=== PATIENT | female | born 1935 | race Two or more races ===

== ENCOUNTER 2019-02-17 23:37 | Inpatient (IN) | payer MEDICARE, MEDICAID ==
[~2019-02-17] VITALS: Ht 162.6 cm; Wt 78.4 kg
[2019-02-18] VITALS (7 sets, daily range): BP systolic 114–164; BP diastolic 58–76
--- NOTE | 2019-02-18 | NUR ---
Direct Admit Note JANETTE CHILDERS admitted to Telemetry/MS unit as a direct admit per MD order. Patient was brought up via wheelchair accompanied by this RN and family member. Patient transferred from wheelchair to bed with minimal assistance. Patient is alert and oriented x4. No S/S of distress/SOB noted. Patient oriented to CLAYTON GRUBBS, primary RN, unit, room, bed, and unit policies regarding patient care and visiting hours. Patient now on continuous telemetry monitoring, tele box #15 and telemetry reading on arrival to unit is sinus rhythm. Patient weighed by bedscale and encouraged to call as needed. All questions and concerns addressed, patient verbalized understanding. MD notified of patients arrival and admit orders received. Bed is locked in lowest position, side rails x 2 are up, call light is within reach, and bed alarm is on.
[2019-02-18] MEDS ORDERED: ONDANSETRON HCL 4 MG/2 ML VIAL IV PRN (00:15)
[2019-02-18] MEDS ORDERED: NITROGLYCERIN 0.4 MG SL TAB SL PRN ×2 (00:15)
[2019-02-18] MEDS ORDERED: TEMAZEPAM 15 MG CAP PO PRN (00:15)
[2019-02-18] MEDS ORDERED: DOCUSATE SOD 100 MG CAP PO PRN (00:15)
[2019-02-18] MEDS ORDERED: LORazepam 0.5 MG TAB PO PRN (00:15)
[2019-02-18] MEDS ORDERED: MORPHINE SULF INJ 2 MG/ML SYRINGE 1ML IV PRN ×2 (00:15)
--- NOTE | 2019-02-18 00:30 | NUR ---
IV insertion IV access obtained, via clean sterile technique by inserting 22 gauge catheter at right forearm after 1 attempt. IV secured properly. IV flushing well, with no resistance. Patient denies burning or painful sensation at site. Educated patient to call this RN if IV site begins to burn or becomes painful, patient verbalized understanding.
[2019-02-18] MEDS ORDERED: LEVOFLOXACIN 500MG 100 ML IV ONE (02:00)
[2019-02-18] MEDS ORDERED: cloNIDine 0.2 mg/24hr 7DAY PATCH TD SCH (02:00)
[2019-02-18] MEDS: HYDROcodone-ACET 5/325MG TAB PO PRN ×3 (02:11→21:57)
[2019-02-18] MEDS: SOD CHL 0.45% 1,000 ML IV SCH ×3 (02:23→19:13)
[2019-02-18] MEDS ORDERED: HYDR-4833 PO (02:38)
[2019-02-18] MEDS ORDERED: RIVA10TA PO (02:38)
[2019-02-18] MEDS ORDERED: FURO20TA3 PO (02:38)
[2019-02-18] MEDS ORDERED: PAR20T PO (02:38)
[2019-02-18] MEDS ORDERED: LORA0.5T12 PO (02:38)
[2019-02-18] MEDS ORDERED: MET50T PO (02:38)
[2019-02-18] MEDS ORDERED: FENO1TAB42 PO ×2 (02:38→02:39)
[2019-02-18] MEDS ORDERED: LATA0.0015 EACHEYE (02:38)
[2019-02-18] MEDS ORDERED: SIMV-8 PO (02:38)
[2019-02-18] MEDS ORDERED: VALS40TA2 PO (02:38)
[2019-02-18] MEDS ORDERED: DILT30TA24 PO (02:38)
[2019-02-18] MEDS ORDERED: ANAS1TAB7 PO (02:38)
[2019-02-18] MEDS ORDERED: CLOP75TA28 PO (02:38)
[2019-02-18] MEDS ORDERED: CLON0.1T PO (02:38)
[2019-02-18] MEDS ORDERED: DOCU100T15 PO (02:38)
[2019-02-18 03:50] LABS: BUN/Creatinine Ratio 19.8; Calcium 8.1 mg/dL (8.5-10.1); Potassium 5.1 mmol/L (3.5-5.1)
[2019-02-18 03:53] LABS: Hematocrit 28.1 % (36.0-46.0); Hemoglobin 9.7 g/dL (12.2-16.2); Mean Corpuscular Hemoglobin 38.5 pg (28.0-32.0); Mean Corpuscular Hgb Conc. 34.5 g/dL (32.0-36.0); Mean Corpuscular Volume 111.7 fL (80.0-100.0); Platelet Count (auto) 258 10^3/uL (140-450); Red Blood Cells 2.52 10^6/uL (4.0-5.20); Red Cell Distribution Width 15.3 % (11.8-14.3); White Blood Cell 6.2 10^3/uL (4.4-10.8)
[2019-02-18 03:55] LABS: Basophils % (manual) 0 (0.0-2.0); Blast Cells 0; Myelocytes % 0; Promyelocytes % 0; Reactive Lymphocytes 0
[2019-02-18 04:18] LABS: Urine Bacteria FEW /hpf (None Seen); Urine Blood TRACE /uL (Negative); Urine Specific Gravity 1.016 (1.001-1.035); Urine WBC 349 /hpf (0 - 5); Urine WBC Clumps PRESENT /hpf (None Seen)
[2019-02-18 05:06] LABS: Band Neutrophils % (manual) 5; Eosinophils % (manual) 3 (0-7); Lymphocytes % (manual) 34 (10.0-50.0); Metamyelocytes % 1; Monocytes % (manual) 6 (0-12)
[2019-02-18] MEDS: SODIUM CHLOR 0.9% PF (SALINE LOCK) 10ML VIAL/SYR IV SCH ×3 (05:52→21:51)
[2019-02-18] MEDS: ACETAMINOPHEN 325 MG TAB PO PRN (06:33)
[2019-02-18] MEDS: VALSARTAN 80 MG TAB PO SCH ×2 (09:56→21:51)
[2019-02-18] MEDS: METOPROLOL SUCCINATE XL 50 MG TAB PO SCH (09:57)
[2019-02-18] MEDS ORDERED: LEVOFLOXACIN 500MG 100 ML IV SCH (10:00)
--- NOTE | 2019-02-18 20:48 | NUR ---
RECEIVED PATIENT FROM DAY SHIFT RN. PATIENT RESTING IN BED. NO S/S OF DISTRESS NOTED. DENIED PAIN FOR NOW, BUT LITTER TENDER WHEN ASSESSING ABDOMEN. POC INSTRUCTED AND ENCOURAGED PATIENT TO CALL FOR ORGANIZATIONAL DEVELOPMENT MANAGER IF NEEDED. BED IN LOWEST POSITION WITH SIDE RAILS UP X 2. CALL SARGENT WITHIN REACH. ALARM ON. CONTINUE TO MONITOR FOR CHANGES Q1H AND PRN.
[2019-02-18] MEDS: HUMALOG INSULIN SC SCH (21:56)
[2019-02-18] MEDS: ACCU-CHEK COMFORT CURVE STRIP VI SCH (21:57)
--- NOTE | 2019-02-18 21:57 | NUR ---
ACCU-CHECK, BS 142. NO COVERAGE PER SLIDING SCALE. CONTINUE TO MONITOR.
--- NOTE | 2019-02-19 00:51 | NUR ---
PATIENT SLEEPING. NO S/S OF DISTRESS NOTED. BREATHING EVEN AND UNLABORED. CONTINUE TO MONITOR.
[2019-02-19] MEDS: LEVOFLOXACIN 250MG 50 ML IV SCH (01:42)
[2019-02-19] MEDS: HYDROcodone-ACET 5/325MG TAB PO PRN ×3 (02:28→21:51)
--- NOTE | 2019-02-19 02:28 | NUR ---
PATIENT C/O HEADACHE @ 01/06. MEDICATED PATIENT ORDERED. CONTINUE TO MONITOR.
[2019-02-19 05:00] VITALS: BP 157/75
[2019-02-19] MEDS: SODIUM CHLOR 0.9% PF (SALINE LOCK) 10ML VIAL/SYR IV SCH ×3 (05:52→21:50)
[2019-02-19] MEDS: ACCU-CHEK COMFORT CURVE STRIP VI SCH ×4 (06:32→21:51)
[2019-02-19 06:33] LABS: Potassium 4.5 mmol/L (3.5-5.1)
--- NOTE | 2019-02-19 06:33 | NUR ---
ACCU-CHECK, BS 87. CONTINUE TO MONITOR.
[2019-02-19] MEDS: ACETAMINOPHEN 325 MG TAB PO PRN ×2 (06:34→18:18)
--- NOTE | 2019-02-19 06:34 | NUR ---
PATIENT C/O HEADACHE 12/06, MEDICATED PATIENT ORDERED. CONTINUE TO MONITOR.
[2019-02-19 06:42] LABS: BUN/Creatinine Ratio 20.7; Calcium 8.1 mg/dL (8.5-10.1)
--- NOTE | 2019-02-19 06:54 | NUR ---
[facility] CALLED THAT PATIENT HAD A RUN OF VT. CHECKED PATIENT, PATIENT STATED SHE IS OKAY, DENIED ANY PAIN AND CHEST DISCOMFORT. NO S/S OF DISTRESS NOTED. VITALS STABLE, BP 152/70, HR 63, RR 18, O2 SAT 94% ON RA. WILL PASS IT TO DAY SHIFT RN. CONTINUE TO MONITOR.
--- NOTE | 2019-02-19 07:39 | NUR ---
Opening Shift Note Assumed care of patient, awake, alert and oriented X4 . On room air, breath sounds even and unlabored. No S/S of distress/SOB . Patient c/o a headache 10/06. Will medicate as prescribed by MD. Instructed on POC and to call for assist PRN. Bed at lowest locked position, bed rails up x2 and call light within reach. Will continue to monitor for changes Q1hr and PRN.
[2019-02-19 08:00] VITALS: BP 119/62
[2019-02-19 09:00] VITALS: BP 119/62
[2019-02-19] MEDS: SOD CHL 0.45% 1,000 ML IV SCH (09:23)
[2019-02-19] MEDS: VALSARTAN 80 MG TAB PO SCH ×2 (09:57→21:50)
[2019-02-19] MEDS: METOPROLOL SUCCINATE XL 50 MG TAB PO SCH (09:58)
[2019-02-19 13:00] VITALS: BP 163/71
--- NOTE | 2019-02-19 16:50 | NUR ---
UPDATED PATIENT AND FAMILY ON PLAN OF CARE
--- NOTE | 2019-02-19 19:50 | NUR ---
RECEIVED PATIENT FROM DAY SHIFT RN. PATIENT RESTING IN BED. FAMILY AT BEDSIDE. NO S/S OF DISTRESS NOTED. DENIED PAIN FOR NOW. INSTRUCTED PATIENT ABOUT STRAIGHT CATH, PATIENT VERBALIZED UNDERSTANDING. WILL DO IT LATER. POC INSTRUCTED AND ENCOURAGED PATIENT TO CALL FOR CONFIDENTIAL SECRETARY IF NEEDED. BED IN LOWEST POSITION WITH SIDE RAILS UP X 2. CALL SARGENT WITHIN REACH. ALARM ON. CONTINUE TO MONITOR FOR CHANGES Q1H AND PRN.
--- NOTE | 2019-02-19 20:44 | NUR ---
URINE SAMPLE COLLECTED THROUGH STRAIGHT CATH. PATIENT TOLERATED WELL. URINE SAMPLE SENT TO LAB. CONTINUE TO MONITOR.
[2019-02-19 21:18] LABS: Urine Bacteria NONE SEEN /hpf (None Seen); Urine Blood TRACE /uL (Negative); Urine Mucus FEW (None Seen); Urine Specific Gravity 1.019 (1.001-1.035); Urine WBC 91 /hpf (0 - 5)
[2019-02-19] MEDS: HUMALOG INSULIN SC SCH (21:51)
--- NOTE | 2019-02-19 21:55 | NUR ---
ACCU-CHECK, BS 104. NO COVERAGE PER SLIDING SCALE. PATIENT C/O HEADACHE @ 01/06. MEDICATED PATIENT ORDERED. CONTINUE TO MONITOR.
[2019-02-19 22:00] VITALS: BP 153/68
--- NOTE | 2019-02-20 00:44 | NUR ---
REPORT GIVEN TO COLETTE FRANKLIN.
[2019-02-20] MEDS: SOD CHL 0.45% 1,000 ML IV SCH ×2 (01:09→17:57)
[2019-02-20] MEDS: LEVOFLOXACIN 250MG 50 ML IV SCH (01:09)
[2019-02-20 04:58] VITALS: BP 148/70
[2019-02-20] MEDS: ACCU-CHEK COMFORT CURVE STRIP VI SCH ×4 (05:59→21:47)
[2019-02-20] MEDS: SODIUM CHLOR 0.9% PF (SALINE LOCK) 10ML VIAL/SYR IV SCH ×3 (05:59→21:45)
--- NOTE | 2019-02-20 07:15 | NUR ---
Opening Note Received report from night stocker RN. Patient is resting in bed, easy to wake by calling name. Patient is on room air, respirations even and unlabored. Patient states abdominal and flank pain 6/10. Will medicate per orders. Reviewed plan of care with patient, patient verbalized understanding. Bed in low and locked position, call light within reach. Will continue to monitor Q1 hour and PRN.
[2019-02-20] MEDS: HYDROcodone-ACET 5/325MG TAB PO PRN (08:36)
[2019-02-20 08:50] VITALS: BP 150/84
--- NOTE | 2019-02-20 09:15 | NUR ---
Family at bedside
[2019-02-20] MEDS: VALSARTAN 80 MG TAB PO SCH ×2 (09:30→21:46)
[2019-02-20] MEDS: METOPROLOL SUCCINATE XL 50 MG TAB PO SCH (09:31)
[2019-02-20 13:00] VITALS: BP 125/57
--- NOTE | 2019-02-20 15:41 | NUR ---
assessment Patient will need a resumption order for [facility] on discharge. Addendum: 02/20/19 at 1542 by Regina PINEDA Amended: Links added.
[2019-02-20 16:57] VITALS: BP 158/68
[2019-02-20] MEDS: ACETAMINOPHEN 325 MG TAB PO PRN (18:16)
--- NOTE | 2019-02-20 19:10 | NUR ---
Closing Note Report given to mill manager RN. Family at bedside. No signs or symptoms of distress noted at this time.
--- NOTE | 2019-02-20 19:22 | NUR ---
RECEIVED PATIENT FROM DAY SHIFT RN. PATIENT RESTING IN BED. FAMILY AT BEDSIDE. NO S/S OF DISTRESS NOTED. DENIED PAIN FOR NOW. POC INSTRUCTED AND ENCOURAGED PATIENT TO CALL FOR HAND COLLATOR IF NEEDED. BED IN LOWEST POSITION WITH SIDE RAILS UP X 2. CALL SARGENT WITHIN REACH. ALARM ON. CONTINUE TO MONITOR FOR CHANGES Q1H AND PRN.
--- NOTE | 2019-02-20 19:53 | NUR ---
IV insertion IV access obtained, via clean sterile technique by inserting [22] gauge catheter at [RFA] after [1] attempt(s). IV secured properly. No trauma to site. Patient tolerated well. IV removal PATIENT C/O PAIN WHEN FLUSHING THE IV, IV DC'd with clean sterile technique, catheter fully intact. Pressure dressing applied to site. Patient tolerated well. NOTE:
[2019-02-20 21:00] VITALS: BP 134/76
--- NOTE | 2019-02-20 21:27 | NUR ---
MD CH AT BEDSIDE.
[2019-02-20] MEDS: HUMALOG INSULIN SC SCH (21:47)
--- NOTE | 2019-02-20 22:10 | NUR ---
ACCU-CHECK, BS 142. NO COVERAGE PER SLIDING SCALE. CONTINUE TO MONITOR.
[2019-02-21] MEDS: LEVOFLOXACIN 250MG 50 ML IV SCH (01:36)
--- NOTE | 2019-02-21 01:36 | NUR ---
PATIENT IS RELAX AND SLEEPING NOW. NO S/S OF DISTRESS NOTED. CONTINUE CARE.
[2019-02-21 04:30] VITALS: BP 131/49
--- NOTE | 2019-02-21 04:31 | NUR ---
PATIENT SLEEPING. NO S/S OF DISTRESS NOTED. BREATHING EVEN AND UNLABORED. CONTINUE TO MONITOR.
[2019-02-21] MEDS: SODIUM CHLOR 0.9% PF (SALINE LOCK) 10ML VIAL/SYR IV SCH (06:14)
[2019-02-21] MEDS: ACCU-CHEK COMFORT CURVE STRIP VI SCH ×2 (06:22→11:30)
--- NOTE | 2019-02-21 06:23 | NUR ---
ACCU-CHECK, BS 88. CONTINUE TO MONITOR.
--- NOTE | 2019-02-21 06:35 | NUR ---
Called/paged Dr. CH called re:PATIENT'S DISCHARGE ORDER. Waiting for call back. Continue care.
[2019-02-21 08:00] VITALS: BP 160/71
[2019-02-21] MEDS: ACETAMINOPHEN 325 MG TAB PO PRN (08:17)
[2019-02-21] MEDS ORDERED: LEVO500T21 PO (09:18)
--- NOTE | 2019-02-21 09:23 | NUR ---
Paged Dr. Schmitz Paged Dr. Schmitz regarding patients discharge order. Per operations inspector RN patient is to be discharged today. Awaiting call back
[2019-02-21] MEDS: METOPROLOL SUCCINATE XL 50 MG TAB PO SCH (09:30)
[2019-02-21] MEDS: VALSARTAN 80 MG TAB PO SCH (09:30)
[2019-02-21 10:48] VITALS: BP 160/71
[2019-02-21] MEDS: SOD CHL 0.45% 1,000 ML IV SCH (11:23)
--- NOTE | 2019-02-21 11:30 | NUR ---
DISCHARGE Discharge instructions given as ordered. Encourage to follow up with PMD as instructed. All questions and concerns addressed. Patient verbalized understanding. Medication reconciliation form completed and copy given to patient. IV catheter removed, catheter intact, pressure dressing applied. new prescriptions given to patient. equipment monitor phototypesetting removed and returned to [facility]. Patient taken down to vehicle via wheelchair, accompanied by staff and family member. No signs or symptoms of distress noted at this time.
== END 2019-02-21 11:30 | disposition home or self-care (01) | DRG 690 ==
LOC: EAST 23:37 → TELE-EAST 02-18 02:29
PROVIDERS: ADMIT Nurse Practitioner Family; ATTEND Internal Medicine
DX: N10 Acute pyelonephritis (principal); N17.9 Acute kidney failure, unspecified; N18.9 Chronic kidney disease, unspecified; E11.22 Type 2 diabetes mellitus with diabetic chronic kidney disease; E66.09 Other obesity due to excess calories; K59.00 Constipation, unspecified; F41.9 Anxiety disorder, unspecified; I48.91 Unspecified atrial fibrillation; I13.10 Hypertensive heart and chronic kidney disease without heart failure, with stage 1 through stage 4 chronic kidney disease, or unspecified chronic kidney disease; I25.10 Atherosclerotic heart disease of native coronary artery without angina pectoris; C50.112 Malignant neoplasm of central portion of left female breast; R22.2 Localized swelling, mass and lump, trunk; B96.89 Other specified bacterial agents as the cause of diseases classified elsewhere; E86.1 Hypovolemia; E78.5 Hyperlipidemia, unspecified; Z92.21 Personal history of antineoplastic chemotherapy; Z68.29 Body mass index [BMI] 29.0-29.9, adult; Z79.899 Other long term (current) drug therapy; Z87.440 Personal history of urinary (tract) infections; Z79.84 Long term (current) use of oral hypoglycemic drugs; Z82.49 Family history of ischemic heart disease and other diseases of the circulatory system; Z80.0 Family history of malignant neoplasm of digestive organs
CPT/HCPCS: 36415; 71046; 80048; 81001; 82962; 85007; 85027; 87081; 87086; G0378; J1956